=== PATIENT | female | born 1960 | race Two or more races ===

== ENCOUNTER 2019-07-19 13:04 | Emergency (ER) | payer MEDICARE ==
[~2019-07-19] VITALS: Ht 160 cm; Wt 52.0 kg
[2019-07-19 14:44] VITALS: BP 150/90
[2019-07-19] MEDS ORDERED: HYDROCODONE/ACETAMINOPHEN 5/325MG TABLET PO ONE (14:45)
== END 2019-07-19 15:11 | disposition home or self-care (01) ==
LOC: ER 13:04
DX: S09.8XXA Other specified injuries of head, initial encounter (principal); S10.83XA Contusion of other specified part of neck, initial encounter; S30.0XXA Contusion of lower back and pelvis, initial encounter; V49.49XA Driver injured in collision with other motor vehicles in traffic accident, initial encounter; Y93.89 Activity, other specified; Y92.89 Other specified places as the place of occurrence of the external cause; Y99.8 Other external cause status
CPT/HCPCS: 99283